=== PATIENT | male | born 1985 | race Caucasian/White ===

== ENCOUNTER → 2017-10-13 | Emergency (ER) | payer OTHER ==
[~2017-10-13] VITALS: Ht 188 cm; Wt 83.9 kg
[~2017-10-13] MED LIST: MEDROLPACK PO
== END | disposition home or self-care (01) ==
LOC: ER 06:47
DX: S60.221A Contusion of right hand, initial encounter (principal); W22.8XXA Striking against or struck by other objects, initial encounter; Y93.89 Activity, other specified; Y92.89 Other specified places as the place of occurrence of the external cause; Y99.8 Other external cause status

== ENCOUNTER → 2017-10-19 18:17 | Outpatient (CLI) | payer OTHER | END | disposition home or self-care (01) | LOC: RAD 18:17 | DX: M79.641 Pain in right hand (principal) ==

== ENCOUNTER 2017-11-13 09:10 | Emergency (ER) | payer OTHER ==
[~2017-11-13] VITALS: Ht 188 cm; Wt 81.6 kg
[2017-11-13] MEDS ORDERED: SYNTHROID75 MCG (09:41)
== END 2017-11-13 11:18 | disposition home or self-care (01) ==
LOC: ER 09:10
DX: R22.9 Localized swelling, mass and lump, unspecified (principal); T78.49XA Other allergy, initial encounter; X58.XXXA Exposure to other specified factors, initial encounter

== ENCOUNTER 2020-05-13 19:27 | Emergency (ER) | payer OTHER ==
[~2020-05-13] VITALS: Ht 188 cm; Wt 81.6 kg
[~2020-05-13 19:27] MED LIST changes: +SYNTHROID75 MCG
[2020-05-13] MEDS ORDERED: SYNTHROID112 MCG PO (20:07)
== END 2020-05-13 21:04 | disposition home or self-care (01) ==
LOC: ER 19:27
DX: S61.220A Laceration with foreign body of right index finger without damage to nail, initial encounter (principal); W26.0XXA Contact with knife, initial encounter; Y93.89 Activity, other specified; Y92.89 Other specified places as the place of occurrence of the external cause; Y99.8 Other external cause status

== ENCOUNTER 2021-05-03 07:58 | Emergency (ER) | payer OTHER ==
[~2021-05-03] VITALS: Ht 188 cm; Wt 81.6 kg
[~2021-05-03 07:58] MED LIST changes: +SYNTHROID112 MCG PO
== END 2021-05-03 09:31 | disposition home or self-care (01) ==
LOC: ER 07:58
DX: L23.9 Allergic contact dermatitis, unspecified cause (principal)

== ENCOUNTER → 2023-02-16 | Emergency (ER) | payer OTHER | END | disposition left against medical advice (07) | LOC: ER 11:49 | DX: Z53.21 Procedure and treatment not carried out due to patient leaving prior to being seen by health care provider (principal) ==

== ENCOUNTER 2024-07-11 07:23 | Emergency (ER) | payer OTHER ==
[~2024-07-11] VITALS: Ht 188 cm; Wt 87.1 kg
[2024-07-11 07:39] VITALS: BP 134/83; O2SAT 97
[2024-07-11] MEDS ORDERED: KETOROLAC TROMETHAMINE 30 MG VIAL IM STA (08:33)
[2024-07-11] MEDS ORDERED: CEFTRIAXONE SODIUM 1,000 MG VIAL IM STA (08:33)
== END 2024-07-11 10:40 | disposition home or self-care (01) ==
LOC: ER 07:25
DX: J03.80 Acute tonsillitis due to other specified organisms (principal); Z91.013 Allergy to seafood

== ENCOUNTER 2024-07-16 05:10 | Emergency (ER) | payer OTHER ==
[~2024-07-16] VITALS: Ht 188 cm; Wt 86.2 kg
[2024-07-16] MEDS ORDERED: CEFTRIAXONE SODIUM 1,000 MG VIAL IM ONE (08:30)
[2024-07-16] MEDS ORDERED: NICOTINE PATCH1 EAC2 TOP (08:30)
[2024-07-16] MEDS ORDERED: MEDROLPACK PO (08:30)
[2024-07-16] MEDS ORDERED: METHYLPREDNISOLONE SOD SUCC 40 MG VIAL IM ONE (08:30)
[2024-07-16] MEDS ORDERED: ZITHROMAX500 MG PO (08:30)
[2024-07-16] MEDS ORDERED: PEPCID AC20 MG PO (08:30)
== END 2024-07-16 08:48 | disposition home or self-care (01) ==
LOC: ER 05:12
DX: J02.9 Acute pharyngitis, unspecified (principal); E03.8 Other specified hypothyroidism; Z91.013 Allergy to seafood

== ENCOUNTER 2024-07-21 08:45 | Emergency (ER) | payer OTHER ==
[~2024-07-21] VITALS: Ht 188 cm; Wt 86.2 kg
[~2024-07-21 08:45] MED LIST changes: +NICOTINE PATCH1 EAC2 TOP; +PEPCID AC20 MG PO; +ZITHROMAX500 MG PO
[2024-07-21 10:05] LABS: HEMOGLOBIN 14.6 g/dL (13-16.00); MEAN CELL VOLUME 88.1 fL (80.0-100.00); MEAN CORPUSCULAR HEMOGLOBIN 30.7 pg (27.00-32.0); MEAN CORPUSCULAR HGB CONC 34.9 g/dl (32.0-36.0); PLATELET COUNT 257 K/uL (150-450); RED BLOOD COUNT 4.76 M/uL (4.00-6.00); RED CELL DISTRIBUTION WIDTH 12.7 % (11.5-14.5)
[2024-07-21] MEDS ORDERED: CEFTRIAXONE SODIUM 1,000 MG VIAL IM STA (10:56)
[2024-07-21] MEDS ORDERED: KETOROLAC TROMETHAMINE 30 MG VIAL IM STA (10:56)
== END 2024-07-21 11:41 | disposition home or self-care (01) ==
LOC: ER 08:47
PROVIDERS: General Practice
DX: R07.0 Pain in throat (principal); Z91.013 Allergy to seafood

== ENCOUNTER 2024-07-26 08:29 | Emergency (ER) | payer OTHER ==
[~2024-07-26] VITALS: Ht 182.9 cm; Wt 83.9 kg
[2024-07-26] MEDS ORDERED: METHYLPREDNISOLONE SOD SUCC 40 MG VIAL IM ONE (09:00)
[2024-07-26] MEDS ORDERED: KETOROLAC TROMETHAMINE 60 MG VIAL IM ONE (09:00)
[2024-07-26] MEDS ORDERED: CEFTRIAXONE SODIUM 1,000 MG VIAL IM ONE (09:00)
== END 2024-07-26 09:40 | disposition home or self-care (01) ==
LOC: ER 08:31
DX: R07.0 Pain in throat (principal); Z91.013 Allergy to seafood; E03.8 Other specified hypothyroidism
CPT/HCPCS: 96372; 99282; J0696; J1885; J3490